=== PATIENT | male | born 1960 | race Caucasian/White ===

== ENCOUNTER → 2021-09-26 08:37 | Outpatient (CLI) | payer OTHER, SELFPAY ==
[2021-09-26 10:48] LABS: Cholesterol 204 mg/dL (200); Glucose 105 mg/dL (74-106); High Density Lipoprotein 46 mg/dL; Triglycerides 69 mg/dL; Very Low Density Lipoprotein 14 mg/dL (5-40)
== END ==
PROVIDERS: Referring Provider Family Medicine; Visit Provider Family Medicine
DX: Z13.9 Encounter for screening, unspecified (principal)
CPT/HCPCS: 36415; 80061; 82947